=== PATIENT | female | born 1985 | race Caucasian/White ===

== ENCOUNTER 2023-07-05 10:24 | Emergency (ER) | payer OTHER, SELFPAY ==
[2023-07-05 11:27] VITALS: BP 123/79; PULSE 80; RESP 16; TEMP 36.8; O2SAT 97; BMI 29.3
--- NOTE | 2023-07-05 11:27 | ED.GENADULT ---
HPI - General Adult General Chief complaint: General Medical Stated complaint: Pain All Over DX w/Thyroid CA 2 Wks Ago Time Seen by Provider: 07/05/23 11:40 Source: patient and family Mode of arrival: ambulatory Limitations: no limitations History of Present Illness HPI narrative: 37 yo female who was recently diagnosed with papillary thyroid cancer 1 week ago presents to the ER for evaluation of anxiety, insomnia, decreased PO intake associated with tender lymph nodes in her neck, axillary area and inguinal area. She is having a hard time dealing with her diagnosis and is scared. She is meeting with a surgeon on 07/12. She reports poor appetite and not wanting to eat. No difficulty swallowing. No fever or chills. She is not sleeping well at night due to anxiety. She has not tried any medications for this. She denies chest pain, SOB, N/V/D or abdominal pain. MD complaint: anxiety, insomnia, decreased PO intake Onset (ago): day(s) Location: neck Pain Consistency: intermittent Relieving factors: none Exacerbating factors: none Associated symptoms: loss of appetite, malaise and weakness Treatments prior to arrival: none Related Data Previous Rx's Medication Instructions Recorded hydroxyzine HCl 25 mg tablet 25 mg PO TID PRN anxiety #20 tabs 07/05/23 Allergies Allergy/AdvReac Type Severity Reaction Status Date / Time aspirin Allergy Unknown Verified 04/17/19 00:00 ibuprofen Allergy Unknown Verified 04/17/19 00:00 Review of Systems Review of Systems: Yes all other systems are reviewed and are negative [facility] Social History Social History Advance Directives: No Advance Directives Information Provided: No Physical Exam ED Vital Signs: Vital Signs - 24 hr 07/05/23 11:27 07/05/23 15:02 Temperature 98.2 F Pulse Rate 80 76 Respiratory Rate 16 19 Blood Pressure 123/79 124/76 Pulse Oximetry 97 98 BMI result Body Mass Index 29.3 Appearance: Alert. Oriented X3. No acute distress. Head: normocephalic, atraumatic. Eyes: Pupils equal, round and reactive to light. ENT: Pharynx normal. No tonsillar swelling or exudate. Neck: anterior neck with no significant swelling or appreciated goiter. Neck supple with mild thyroid tenderness. no significant cervical lymphadenopathy CVS: Normal heart rate and rhythm. Pulses normal. Respiratory: No respiratory distress. Breath sounds normal. Abdomen: Soft and nontender. +BS x4 Skin: Skin warm and dry. Normal skin color. Normal skin turgor. No rashes. Extremities: No lower extremity edema. No joint swelling. in palpable inguinal LAD Neuro/psych: Oriented X 3. No motor deficit. No sensory deficit. CN II-XII intact. Normal speech and cognition. Course Course Course Narrative: This is a rapid medical exam: Additional HPI, ROS, PE not included below will be deferred to primary provider. Patient is a 37-year-old female presenting to the emergency department with complaint of anxiety and depression, insomnia. Was diagnosed with thyroid cancer one week prior. States has not eaten in the past 24 hours due to not feeling a desire to eat, denies difficulty swallowing food or fluids. Denies shortness of breath. Also complains of neck pain for the past 2-3 weeks as well as left ear pain. Has recently developed bilateral axillary and groin pain but states I don't want to know if I have more cancer. Sister reports their father had issues with drug addiction and is requesting caution if provider will be prescribing any potentially addicting medications. States she does have a PCP. Medications Administered Discontinued Medications Generic Name Dose Route Start Last Admin Trade Name Laurentq PRN Reason Stop Dose Admin Acetaminophen 650 mg 07/05/23 13:54 07/05/23 14:02 Acetaminophen 325 Mg Tablet PO 07/05/23 13:55 650 mg ONCE ONE Administration Sodium Chloride 1,000 mls @ 999 mls/hr 07/05/23 12:15 07/05/23 12:27 Ns IVCONT 07/05/23 13:15 999 mls/hr .Q1H1M [place] Administration Lorazepam 0.5 mg 07/05/23 12:02 07/05/23 12:30 Lorazepam 0.5 Mg Tablet PO 07/05/23 12:03 0.5 mg ONCE ONE Administration Medical Decision Making Medical Decision Making MDM Narrative: 37 yo female with recently diagnosed papillary thyroid cancer presenting with anxiety, insomnia, decreased PO intake. VSS and physical exam is unremarkable. She appears well although anxious and tearful at times. Basic labs were checked and largely unremarkable, mild hypercalcemia. She was given IVF and low dose of ativan. she feels significantly better with anxiolytic. she was tolerating po. at this time patient is stable for d/c with close outpatient follow up. patient agrees w/ plan and all questions were answered Differential Diagnosis Differential Diagnoses: The differential diagnosis associated with the presentation includes dehydration, insomnia, anxiety, adjustment disorder, dysphagia, possible metastatic disease, failure to thrive Lab Data MDM Lab Attestation statement: I reviewed the patient's lab results. unremarkable 07/05/23 12:25 07/05/23 12:25 Labs: Lab Results 07/05/23 07/05/23 Range/Units 12:25 12:25 WBC 9.7 (4.8-10.8) X10*3/uL RBC 5.23 (4.20-5.50) X10*6/uL Hgb 14.6 (12.0-16.0) g/dl Hct 44.1 (37.0-47.0) % MCV 84.3 (80.0-98.0) fL MCH 27.9 (27.0-33.0) pg MCHC 33.1 (31.0-35.0) g/dl RDW 13.9 (11.0-16.0) % Plt Count 437 H (160-400) X10*3/uL MPV 9.2 L (9.4-12.3) fL Immature Gran % (Auto) 0.2 (0.0-0.4) % Neut % (Auto) 63.9 (45-73) % Lymph % (Auto) 28.7 (20-40) % [place] % (Auto) 6.0 (2-11) % Eos % (Auto) 0.3 (0-4) % Baso % (Auto) 0.9 (0-2) % Lymph # (Auto) 2.8 (1.2-4.9) X10*3/uL [place] # (Auto) 0.6 (0.1-1.2) X10*3/uL Eos # (Auto) 0.0 (0.0-0.4) X10*3/uL Baso # (Auto) 0.1 (0.0-0.2) X10*3/uL Abs Immat Gran (auto) 0.02 (0.00-0.03) X10*3/uL Absolute Neuts (auto) 6.2 (2.0-8.3) x10*3/uL Absolute Nucleated RBC 0.000 (0.0-0.012) X10*3/uL Nucleated RBC % (auto) 0.0 (0.0-0.2) /100WBC Sodium 140 (135-145) mmol/L Potassium 4.2 (3.3-5.1) mmol/L Chloride 107 (96-108) mmol/L Carbon Dioxide 25 (22-29) mmol/L Anion Gap 12 (12-20) BUN 5 L (9-16) mg/dL Creatinine 0.75 (0.5-1.4) mg/dL Estim Creat Clear Calc 112.6 Estimated GFR > 60 Random Glucose 99 (60-115) mg/dL Calcium 10.8 H (8.4-10.2) mg/dL Magnesium 2.1 (1.6-2.6) mg/dL Total Bilirubin 0.8 (0.0-1.0) mg/dL Direct Bilirubin 0.3 (0.0-0.5) mg/dL AST 16 (5-31) U/L ALT 26 (0-31) U/L Alkaline Phosphatase 77 (39-117) U/L Total Protein 8.2 H (6.5-8.0) g/dL Albumin 4.7 (3.5-5.0) g/dL Independent Historian Clinical information obtained from an independent historian. History obtained from or confirmed by: Other (sister) Prescription Management I considered prescription management with: Pain Medication and Other (anxiolytic) Chronic Conditions Patient?s care impacted by: Other (thyroid cancer) Critical Care Time Critical Care Time Critical Care Time: No Discharge Plan Discharge Clinical Impression: Anxiety, Adjustment disorder Patient Disposition: Home, Self-Care Instructions: Anxiety (ED) Additional Instructions: Your lab workup today was unremarkable. Take the prescribed medication as needed for anxiety and for sleep. Follow up with your doctor, oncologist and surgeon. Recommend reaching out to cancer support groups for support. If you develop new or worsening symptoms call 911 or come back to the ER for further evaluation. Prescriptions: New hydroxyzine HCl 25 mg tablet 25 mg PO TID PRN (Reason: anxiety) Qty: 20 0RF Referrals: Clinton Yeboah MD [Primary Care Provider] - Interventions: ED Discharge Assessment Last Done: 07/05/23 15:02 Discharge Date/Time: 07/05/23 15:03
[2023-07-05] MEDS: 0.9 % Sodium Chloride 1,000 ML 999 ML IVCONT (12:27)
[2023-07-05] MEDS: LORazepam 0.5 MG TABLET PO (12:30)
[2023-07-05 12:32] LABS: MANUAL DIFF FLAG NO
[2023-07-05 12:34] LABS: Basophils Absolute Auto 0.1 X10*3/uL (0.0-0.2); Basophils Percent Auto 0.9 % (0-2); Eosinophils Percent Auto 0.3 % (0-4); Hematocrit 44.1 % (37.0-47.0); Hemoglobin 14.6 g/dl (12.0-16.0); Imm Gran Abs Auto 0.02 X10*3/uL (0.00-0.03); Imm Gran Pct Auto 0.2 % (0.0-0.4); Lymphocytes Absolute Auto 2.8 X10*3/uL (1.2-4.9); Lymphocytes Percent Auto 28.7 % (20-40); Mean Corpuscular HGB Conc 33.1 g/dl (31.0-35.0); Mean Corpuscular Hemoglobin 27.9 pg (27.0-33.0); Mean Corpuscular Volume 84.3 fL (80.0-98.0); Mean Platelet Volume 9.2 fL (9.4-12.3); Monocytes Absolute Auto 0.6 X10*3/uL (0.1-1.2); Neutrophils Absolute Auto 6.2 x10*3/uL (2.0-8.3); Neutrophils Percent Auto 63.9 % (45-73); Platelet Count 437 X10*3/uL (160-400); Red Blood Count 5.23 X10*6/uL (4.20-5.50); Red Cell Distribution Width 13.9 % (11.0-16.0); White Blood Count 9.7 X10*3/uL (4.8-10.8)
[2023-07-05 12:53] LABS: Alanine Aminotransferase 26 U/L (0-31); Albumin Level 4.7 g/dL (3.5-5.0); Alkaline Phosphatase 77 U/L (39-117); Anion Gap 12 (12-20); Aspartate Amino Transferase 16 U/L (5-31); Bilirubin Direct 0.3 mg/dL (0.0-0.5); Bilirubin Total 0.8 mg/dL (0.0-1.0); Blood Urea Nitrogen 5 mg/dL (9-16); Calcium 10.8 mg/dL (8.4-10.2); Carbon Dioxide 25 mmol/L (22-29); Chloride 107 mmol/L (96-108); Creatinine Clr Calc Pharmacy 112.6; Estimated Glomerular Filt Rate > 60; Glucose Random 99 mg/dL (60-115); Magnesium 2.1 mg/dL (1.6-2.6); Potassium 4.2 mmol/L (3.3-5.1); Sodium 140 mmol/L (135-145); Total Protein 8.2 g/dL (6.5-8.0)
[2023-07-05] MEDS: Acetaminophen 325 MG TABLET 650 MG PO (14:02)
--- NOTE | 2023-07-05 14:37 | PC.NURSE ---
c/o chiang, apap given, skin wpd, nad, reports feeling better and has slept, nad, ate lunch w sister,
[2023-07-05 15:02] VITALS: BP 124/76; PULSE 76; RESP 19; O2SAT 98
== END 2023-07-05 15:03 | disposition home or self-care (01) ==
PROVIDERS: Physician Assistant; Emergency Provider Emergency Medicine Emergency Medical Services; PCP Internal Medicine
DX: F41.1 Generalized anxiety disorder (principal); F43.0 Acute stress reaction; F43.20 Adjustment disorder, unspecified; M54.2 Cervicalgia; Z79.899 Other long term (current) drug therapy
CPT/HCPCS: 36415; 80048; 80076; 83735; 85025; 99283